=== PATIENT | female | born 1985 | race Caucasian/White ===

== ENCOUNTER 2020-01-01 08:19 | Emergency (ER) | payer OTHER ==
[~2020-01-01] VITALS: Ht 160 cm; Wt 93.4 kg
[2020-01-01 08:48] VITALS: BP 109/63
[2020-01-01 08:55] VITALS: BP 109/63
[2020-01-01] MEDS ORDERED: TORADOL IM STA (09:17)
[2020-01-01] MEDS ORDERED: TORADOL ONE (09:21)
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
[2020-01-01 09:43] VITALS: BP 104/61
== END 2020-01-01 09:40 | disposition home or self-care (01) ==
LOC: ER 08:19
DX: S10.93XA Contusion of unspecified part of neck, initial encounter (principal); Z90.49 Acquired absence of other specified parts of digestive tract; Z90.89 Acquired absence of other organs; Z98.51 Tubal ligation status; Z88.2 Allergy status to sulfonamides; Z88.8 Allergy status to other drugs, medicaments and biological substances; Y04.0XXA Assault by unarmed brawl or fight, initial encounter; Y93.89 Activity, other specified; Y92.89 Other specified places as the place of occurrence of the external cause; Y99.0 Civilian activity done for income or pay
CPT/HCPCS: 96372; 99283; J1885